=== PATIENT | male | born 2000 | race Caucasian/White ===

== ENCOUNTER 2023-04-21 15:15 | Emergency (ER) | payer BC, OTHER ==
[~2023-04-21] VITALS: Ht 175.3 cm; Wt 60.3 kg
[2023-04-21 15:20] VITALS: BP 129/76
--- NOTE | 2023-04-21 15:28 | ED Abdominal Pain ---
General Chief Complaint: Abdominal/GI Problems Stated Complaint: ABD PN HX APPENDECTOMY Source of Information: Patient, Family (mother) Exam Limitations: No Limitations History of Present Illness Date Seen by Provider: April 21, 2023 Time Seen by Provider: 15:22 Initial Comments 23-year-old male who is otherwise healthy presents to the emergency department today for postoperative pain. He had a laparoscopic appendectomy on at [facility]. Has increased pain around his incisions last couple of days. He has not had a bowel movement since surgery. No fevers or chills. No nausea or vomiting. All other systems reviewed and negative except documented per HPI. Voice recognition software was used to help create this chart Allergies and Home Medications Allergies Coded Allergies: No Known Drug Allergies (Unverified , 04/21/23) Patient Home Medication List Home Medication List Reviewed: Yes Review of Systems Review of Systems Constitutional: see HPI Past Dhifbsb-Iddmdi-Fbggdr Hx Patient Social History Tobacco Use?: No Use of E-Cig and/or Vaping dev: No Substance use?: No Alcohol Use?: No Physical Exam Vital Signs Vital Signs - First Documented 04/21/23 15:20 Temp 37.1 Pulse 72 Resp 18 B/P (MAP) 129/76 (93) Pulse Ox 100 O2 Delivery Room Air Capillary Refill : Height/Weight/BMI Height: '" Weight: lbs. oz. kg; BMI Method: General Appearance: WD/WN, mild distress (pain) HEENT: normal ENT inspection, pharynx normal Neck: non-tender, supple Respiratory: chest non-tender, lungs clear, normal breath sounds, no accessory muscle use Cardiovascular: regular rate, rhythm, no murmur Gastrointestinal: normal bowel sounds, soft, tenderness (Tenderness palpation diffusely about the lower abdomen. Voluntary guarding without any rebound tenderness. No mass organomegaly. No skin changes) Extremities: normal range of motion, non-tender, normal inspection, no pedal edema, no calf tenderness Neurologic/Psychiatric: alert, oriented x 3 Skin: normal color Progress/Results/Core Measures Results/Orders Lab Results Laboratory Tests Test 04/21/23 15:30 Range/Units White Blood Count 5.5 4.3-11.0 10^3/uL Red Blood Count 5.05 4.30-5.52 10^6/uL Hemoglobin 14.7 13.3-17.7 g/dL Hematocrit 43 40-54 % Mean Corpuscular Volume 85 80-99 fL Mean Corpuscular Hemoglobin 29 25-34 pg Mean Corpuscular Hemoglobin Concent 34 32-36 g/dL Red Cell Distribution Width 12.2 10.0-14.5 % Platelet Count 270 130-400 10^3/uL Mean Platelet Volume 9.8 9.0-12.2 fL Immature Granulocyte % (Auto) 0 % Neutrophils (%) (Auto) 52 42-75 % Lymphocytes (%) (Auto) 39 12-44 % Monocytes (%) (Auto) 7 0-12 % Eosinophils (%) (Auto) 2 0-10 % Basophils (%) (Auto) 0 0-10 % Neutrophils # (Auto) 2.9 1.8-7.8 10^3/uL Lymphocytes # (Auto) 2.1 1.0-4.0 10^3/uL Monocytes # (Auto) 0.4 0.0-1.0 10^3/uL Eosinophils # (Auto) 0.1 0.0-0.3 10^3/uL Basophils # (Auto) 0.0 0.0-0.1 10^3/uL Immature Granulocyte # (Auto) 0.0 0.0-0.1 10^3/uL Sodium Level 138 135-145 MMOL/L Potassium Level 4.2 3.6-5.0 MMOL/L Chloride Level 102 98-107 MMOL/L Carbon Dioxide Level 27 21-32 MMOL/L Anion Gap 9 5-14 MMOL/L Blood Urea Nitrogen 7 7-18 MG/DL Creatinine 0.89 0.60-1.30 MG/DL Estimat Glomerular Filtration Rate 124 BUN/Creatinine Ratio 8 Glucose Level 85 70-105 MG/DL Calcium Level 9.3 8.5-10.1 MG/DL My Orders Orders - TRINA TRAN DO Cbc With Automated Diff (04/21/23 15:26) Basic Metabolic Panel (04/21/23 15:26) Ct Abdomen/Pelvis W (04/21/23 15:26) Fentanyl Inj (Sublimaze Injection) (04/21/23 15:30) Iohexol Injection (Omnipaque 350 Mg/Ml 1 (04/21/23 15:45) Received Contrast (Hold Metformin- Contr (04/21/23 15:45) Ns (Ivpb) (Sodium Chloride 0.9% Ivpb Bag (04/21/23 15:45) Medications Given in ED Current Medications Medications Dose Ordered Sig/Balwinder Route Start Time Stop Time Status Last Admin Dose Admin Fentanyl Citrate 50 mcg ONCE ONCE IVP 04/21/23 15:30 04/21/23 15:31 DC 04/21/23 15:38 50 MCG Iohexol 100 ml ONCE ONCE IV 04/21/23 15:45 04/21/23 15:46 DC 04/21/23 15:54 75 ML Sodium Chloride 100 ml ONCE ONCE IV 04/21/23 15:45 04/21/23 15:46 DC 04/21/23 15:54 100 ML Vital Signs/I&O 04/21/23 15:20 Temp 37.1 Pulse 72 Resp 18 B/P (MAP) 129/76 (93) Pulse Ox 100 O2 Delivery Room Air Departure Communication (PCP) Patient is hemodynamically stable. CT scan on my independent review and radiology read shows on a very small amount of postoperative fluid. No drainable abscess or significant collection of fluid that is concerning. This is likely normal postoperative changes. His abdominal exam is nonsurgical. He is mostly tender at the incision sites and actually describes it more as a muscle spasm around the incisions than anything else. We will give him a couple more days of pain medication that he is currently taking, Percocet. They also request prescription for 800 mg ibuprofen as the enteric-coated ibuprofen to really work for him. He will also continue his Flexeril. No evidence for obstruction. His bladder was greatly distended on CT scan. We had him urinate into a urinal here and he had 800 cc out. No evidence for urinary retention. Impression Primary Impression: Postoperative pain Disposition: 01 HOME, SELF-CARE Condition: Stable Departure-Patient Inst. Referrals: NO,LOCAL PHYSICIAN (PCP/Family) Primary Care Physician Patient Instructions: Managing pain after surgery Add. Discharge Instructions: Alternate ibuprofen and Percocet as needed for pain. The Percocet has Tylenol in it so do not take additional doses of this. Increase your fluids at home and rest as needed. Add Colace to your stool softener regimen. I was also use some MiraLAX 1 capful twice a day for now and to start having regular bowel movements. Decrease these if you start to have loose stools. Follow-up with your general surgeon as needed. All discharge instructions reviewed with patient and/or family. Voiced understanding. Scripts Ibuprofen (Ibuprofen) 800 Mg Tablet 800 MG PO Q6H PRN for PAIN-MILD for 5 Days, #20 TAB Prov: TRINA TRAN DO 04/21/23 Oxycodone HCl/Acetaminophen (Percocet 5-325 mg Tablet) 1 Each Tablet 1 TAB PO Q4H for PAIN-MODERATE MDD 6 TABS for 2 Days, #12 TAB Prov: TRINA TRAN DO 04/21/23 TRINA TRAN DO April 21, 2023 15:28
[2023-04-21] MEDS ORDERED: fentaNYL INJ 100 MCG/2 ML AMP IVP ONE (15:30)
[2023-04-21 15:35] LABS: BASOPHILS % (AUTO) 0 % (0-10); EOSINOPHILS # (AUTO) 0.1 10^3/uL (0.0-0.3); EOSINOPHILS % (AUTO) 2 % (0-10); HEMATOCRIT 43 % (40-54); HEMOGLOBIN 14.7 g/dL (13.3-17.7); LYMPHOCYTES # (AUTO) 2.1 10^3/uL (1.0-4.0); LYMPHOCYTES % (AUTO) 39 % (12-44); MEAN CORPUSCULAR HEMOGLOBIN 29 pg (25-34); MEAN CORPUSCULAR HGB CONC 34 g/dL (32-36); MEAN CORPUSCULAR VOLUME 85 fL (80-99); MEAN PLATELET VOLUME 9.8 fL (9.0-12.2); MONOCYTES # (AUTO) 0.4 10^3/uL (0.0-1.0); MONOCYTES % (AUTO) 7 % (0-12); NEUTROPHILS # (AUTO) 2.9 10^3/uL (1.8-7.8); NEUTROPHILS % (AUTO) 52 % (42-75); PLATELET COUNT 270 10^3/uL (130-400); WHITE BLOOD COUNT 5.5 10^3/uL (4.3-11.0)
[2023-04-21] MEDS ORDERED: IOHEXOL 350 MG/ML 100 ML (OMNIPAQUE 350) VIAL IV ONE (15:45)
[2023-04-21] MEDS ORDERED: HOLD METFORMIN - RECEIVED CONTRAST 20 ML VIAL IV SCH (15:45)
[2023-04-21] MEDS ORDERED: NS 100 ML (IVPB) BAG IV ONE (15:45)
[2023-04-21 15:50] LABS: CALCIUM 9.3 MG/DL (8.5-10.1); CREATININE SERUM 0.89 MG/DL (0.60-1.30); POTASSIUM 4.2 MMOL/L (3.6-5.0)
--- NOTE | 2023-04-21 16:07 | Diagnostic Imaging Report ---
EXAMINATION: CT abdomen and pelvis with intravenous contrast. TECHNIQUE: Multiple contiguous axial images were obtained through the abdomen and pelvis after the uneventful administration of intravenous contrast. All CT scans use one or more of the following dose optimizing techniques: automated exposure control, MA and/or KvP adjustment based on patient size and exam type or iterative reconstruction. HISTORY: Post appendectomy with abdominal pain. COMPARISON: None available. FINDINGS: Limited views of the lower thorax are unremarkable. The liver is normal without focal lesion. There is no biliary ductal dilation. Gallbladder is normal. Pancreas is normal. Spleen is normal. Adrenal glands are normal. The kidneys are normal. There is no hydronephrosis. Urinary bladder is normal. There has been an appendectomy. Small amount of free fluid and air is present in the abdomen likely related to recent surgery. No drainable fluid collection. No bowel obstruction or inflammation. No abdominal or pelvic lymphadenopathy. Aorta is normal in caliber without aneurysm. There is no suspicious osseus lesion. IMPRESSION: Postsurgical changes of appendectomy. Small amount of postsurgical fluid and air is present but no drainable fluid collection. Dictated by: Dictated on workstation # [id number]
[2023-04-21] MEDS ORDERED: IBUP-1780 PO (16:23)
[2023-04-21] MEDS ORDERED: OXYC1TAB87 PO (16:23)
== END 2023-04-21 16:27 | disposition home or self-care (01) ==
LOC: ER FS 15:19
DX: R10.30 Lower abdominal pain, unspecified (principal); G89.18 Other acute postprocedural pain; Z90.49 Acquired absence of other specified parts of digestive tract
CPT/HCPCS: 36415; 74177; 80048; 85025; Q9967